=== PATIENT | female | born 1935 | race Caucasian/White ===

== ENCOUNTER → 2016-11-04 08:43 | Outpatient (CLI) | payer MEDICARE ==
[2015-09-24 12:50] VITALS: BMI 26.4
[~2016-11-04 08:43] MED LIST: BAYER CHEWABLE81 MG PO; BRILINTA90 MG PO; CARDIZEM 90 MG90 MG PO; COREG6.25 MG PO; LASIX40 MG PO; LISINOPRIL5 MG PO; MULTIPLE VITAMI1 TA1 PO; NIASPAN500 MG PO; TRIGLIDE160 MG PO
== END | disposition home or self-care (01) ==
LOC: D.CT 08:43
DX: I65.23 Occlusion and stenosis of bilateral carotid arteries (principal)

== ENCOUNTER 2017-11-30 10:59 | Emergency (ER) | payer MEDICARE ==
[2015-09-24 12:50] VITALS: BMI 26.4
== END 2017-11-30 17:46 | disposition home or self-care (01) ==
LOC: D.ER 10:59
DX: S43.005A Unspecified dislocation of left shoulder joint, initial encounter (principal); W31.89XA Contact with other specified machinery, initial encounter; Y93.89 Activity, other specified; Y92.019 Unspecified place in single-family (private) house as the place of occurrence of the external cause

== ENCOUNTER → 2018-08-03 17:44 | Outpatient (CLI) | payer MEDICARE ==
[2015-09-24 12:50] VITALS: BMI 26.4
== END | disposition home or self-care (01) ==
LOC: D.MAMMO 14:15
DX: Z12.31 Encounter for screening mammogram for malignant neoplasm of breast (principal)